=== PATIENT | male | born 1955 | race Caucasian/White ===

== ENCOUNTER 2017-04-24 06:48 | Inpatient (IN) | payer OTHER ==
[~2017-04-24 06:48] MED LIST: MORPHINE SULFATE 15 MG TABLET.SA PO PRN; RINGER'S SOLUTION,LACTATED 1,000 ML IV PRN; ROPIVACAINE HCL/PF 100 MG, EPINEPHrine 0.2 MG, KETOROLAC TROMETHAMINE 30 MG in NORMAL S... IJ PRN; TRANEXAMIC ACID 1,000 MG in NORMAL SALINE 100 ML IV PRN; ceFAZolin SODIUM 1 GM VIAL IV PRN
[2017-04-24] MEDS ORDERED: RINGER'S SOLUTION,LACTATED 1,000 ML IV ONE ×2 (07:45→08:46)
[2017-04-24] MEDS ORDERED: NALOXONE HCL 1 MG/1 ML SYRG IV PRN ×2 (08:33)
--- NOTE | 2017-04-24 09:39 | POSTOP NO ---
Date of Surgery: 04/24/17 Patient Tolerated the Procedure: Well Post Operative Diagnosis/Procedures: Enterprise Account Executive: Dylon White PA-C Post-operative Diagnosis: Left hip degenerative joint disease Finding: Above Procedure: Left total hip arthroplasty Estimated Blood Loss: 200 mL Specimens: Bone for disposal
[2017-04-24] MEDS ORDERED: MAGNESIUM HYDROXIDE 30 ML UDC PO PRN (09:41)
[2017-04-24] MEDS ORDERED: DEXTROSE 5%-LACTATED RINGERS 1,000 ML IV PRN (09:41)
[2017-04-24] MEDS ORDERED: PROMETHAZINE HCL 5 MG in DEXTROSE 5 % IN WATER 50 ML IV PRN ×2 (09:41)
[2017-04-24] MEDS ORDERED: ZOLPIDEM TARTRATE 5 MG TABLET PO PRN (09:41)
[2017-04-24] MEDS ORDERED: MAG HYDROX/ALUMINUM HYD/SIMETH 30 ML UDC PO PRN (09:41)
[2017-04-24] MEDS ORDERED: diphenhydrAMINE HCL 50 MG/ML VIAL IV PRN (09:41)
[2017-04-24] MEDS ORDERED: ACETAMINOPHEN 500 MG TABLET PO PRN (09:41)
[2017-04-24] MEDS ORDERED: ONDANSETRON HCL/PF 2 MG/ML VIAL IV PRN (09:41)
--- NOTE | 2017-04-24 09:41 | OR ---
Operative Report - Dictated Report Narrative: Date: 04/24/2017 Preoperative diagnosis: Left hip degenerative joint disease. Postoperative diagnosis: Left hip degenerative joint disease. Procedure: Left Total hip arthroplasty. Surgeon: Zain Navarrete M.D. Manager Garage: Dylon White PA-C Anesthesia: Spinal and local periarticular joint injection. Complications: None Specimens: Bone for disposal. Estimated blood loss: 200 milliliters. Retained implants: Depuy Belcher size 5 femoral stem standard offset. Size 56 millimeter outside diameter 3-hole [place] Gription acetabular cup. 56 millimeter outside by 36 millimeter inside diameter highly cross-linked acetabular liner. 36 millimeter diameter +8.5 millimeter cobalt chromium femoral head. Cancellous 6.5mm screw 35 millimeter length Indications: Mr. Curry is a 61-year-old gentleman who has had long-standing left hip pain and arthrosis. This patient was followed in my clinic for period of time with significant complaints of left hip pain consistent with arthritic changes. He failed conservative measures including but not limited to activity modification, passage of time, medications, and other conservative measures. Patient wished to proceed with surgical treatment. The risks, benefits, and alternatives were discussed in clinic. The risks of , blood clots, bleeding, infection, nerve/tendon blood vessel/ injury, malposition of components, dislocation and/or instability of joint, intraoperative fracture, postoperative limited range of motion, persistent pain, failure of components, and need for additional procedures. Patient wished to proceed. Consent was obtained after answering all questions. Procedure: After marking the correct extremity on the floor, the patient was taken to the operating room. A timeout was performed. IV antibiotics consisting of Ancef were administered prior to the procedure. A spinal anesthetic was induced by anesthesia. A Taylor catheter was inserted. The patient was then transitioned to a lateral position on a well-padded pegboard. An axillary roll was placed. The head was in neutral position. The non- operative down leg was well-padded with SCD and SUDHAKAR hose in place. The arms were supported and padded to protect from any undue pressure on the bony prominences and nerves. A well-padded anterior and posterior pelvic and chest posts were secured in order to maintain a stable position of the pelvis. This was placed so that the pelvis was perpendicular to the floor. The body was in line with the pelvis. Once it was felt that we had protected all the bony prominences and the patient was well secured with a safety belt as well, the leg was pre-scrubbed with alcohol, prepped and draped in a standard sterile fashion. A standard anterior lateral hip incision was marked out over the greater trochanter. Ioban drapes were then placed. The skin incision was then made. Sharp dissection with a scalpel utilizing cautery for hemostasis was carried out down to the gluteus and iliotibial band fascia. This was split in line with the skin incision. The greater trochanter bursa was excised. The anterior and posterior margins of the abductor tendon were identified. The anterior 1/2-1/3 of the tendon was tagged and reflected off the greater trochanter leaving a sleeve of tendon for repair at the completion of the case. This exposed the underlying hip joint capsule. A limb length stitch was placed in the skin and referencedd off a [place] on the greater trochanter for evaluation of intraoperative limb lengths. An inverted T-type capsulotomy was made extending this up to the brim of the acetabulum. Using Homans to assist with elevation of the soft tissues off the anterior, superior, and inferior aspects of the femoral neck, the hip was then placed in a figure 4 position and the femoral head was dislocated. With the leg in an externally rotated and adducted position, the cutting flag was utilized in order to [place] for a standard femoral neck cut approximately a fingerbreadth above the level of the lesser trochanter. This was done with reference to pre-operative films and overall alignment. This was done while protecting the surrounding soft tissues with Homans. The femoral head was then removed and sized for guidance on preparation of the acetabulum. It was noted that there was loss of articular cartilage on both the femoral head and weightbearing portions of the acetabulum. We then returned the leg to the table and turned our attention to the acetabulum. While protecting the surrounding soft tissues, the labrum and remaining tissue in the fovea were excised using a scalpel and cautery. A series of reamers up to size 56 millimeter were utilized to prepare the acetabulum. The final reamer had good purchase and exposed the bleeding subchondral bone. The acetabulum was then thoroughly irrigated ensuring that all bony and cartilaginous materials were removed, and the final acetabular shell was impacted into place. This was placed in approximately 45 degrees of abduction and 20 degrees of anteversion utilizing the outrigger and body axis for alignment. This had a good press fit. 1 6.5mm cancellous screw was placed in the superior posterior quadrant of the acetabulum. The shell was then thoroughly irrigated and the final polyethylene was impacted into place ensuring that it seated completely. This was then protected with a sponge while we returned our attention to the femur. With the leg in a figure 4 position, utilizing Homans for soft tissue protection , a box cutting osteotome, followed by Charnley awl, followed by serial reamers and broaches were utilized in order to prepare the femur. It was found that a size 5 broach gave good axial and rotational stability. The calcar reamer was utilized in order to clean up the cut edges. The proximal femur was visualized to ensure that there were no signs of fracture. A series of heads and necks were trialed. It was found that a standard neck and a + 8.5 femoral head gave good overall stability. There was minimal longitudinal instability. With the leg in the position of sleep, the femoral head was well covered. Hip range of motion was able to reach full extension and external rotation to greater than 75 degrees prior to impingement along the posterior acetabulum. The hip was able to be flexed to greater than 90 degrees with internal rotation greater than 60 degrees prior to anterior impingement. The limb lengths were near equal based on comparison to the contralateral side and the prior placed limb length stitch. At this point it was felt these were the appropriately sized femoral components as well as neck and femoral head. The trial implants were removed. The femur was thoroughly irrigated. The final implants were impacted into place, and the hip was reduced. After ensuring that there was no damage to the proximal femur , the standard periarticular joint injection of ropivacaine, Toradol, and epinephrine were injected into the joint capsule and surrounding soft tissues. Anesthesia then administered intravenous tranexamic acid. The capsule was repaired with a single interrupted #1 Vicryl. The abductor tendon was repaired to the greater trochanter utilizing #5 Ethibond through drill holes. This was oversewn with #1 Vicryl. The fascia was closed with interrupted #1 Vicryl. The wounds were thoroughly irrigated as we closed in layers. The deep and subcutaneous fat layers were closed with 0 and 3-0 Vicryl respectively. The subcutaneous tissue was closed with a running 3-0 Vicryl and the skin with running 3-0 Monocryl subcutaneous and Prineo Dermabond dressing. All sponge, needle, blade, and instrument counts were correct prior to closing the wounds. Sterile dressings consisting of 4 x 4's, and tape were applied. The patient was awoken and transferred to her hospital bed and then to the postanesthesia care unit in stable condition. Postoperative condition: The plan is to admit to the medical/surgical inpatient floor postoperatively. There will be a projected 1 to 3 day hospital stay. Postoperatively 24 hours of IV antibiotics, pain control, physical therapy, occupational therapy, and medical comanagement will be utilized. Patient will be weightbearing as tolerated with anterior hip precautions. Postoperative films will be obtained in the recovery room.
[2017-04-24] MEDS ORDERED: HYDROmorphone HCL 2 MG/ML VIAL IV PRN (09:59)
[2017-04-24] MEDS: KETOROLAC TROMETHAMINE 15 MG/ML VIAL IV SCH ×3 (10:47→21:18)
[2017-04-24] MEDS: ceFAZolin SODIUM 1 GM in DEXTROSE 5 % IN WATER 50 ML IV SCH ×6 (10:48→22:59)
[2017-04-24] MEDS: oxyCODONE HCL/ACETAMINOPHEN 1 TAB TABLET PO PRN ×2 (16:30→21:17)
[2017-04-24] MEDS: SENNOSIDES/DOCUSATE SODIUM 1 TAB TABLET PO SCH (21:17)
[2017-04-24] MEDS: MORPHINE SULFATE 15 MG TABLET.SA PO SCH (21:17)
[2017-04-24] MEDS: SIMVASTATIN 20 MG TABLET PO SCH (21:18)
[2017-04-25] MEDS: oxyCODONE HCL/ACETAMINOPHEN 1 TAB TABLET PO PRN ×4 (03:47→18:19)
[2017-04-25] MEDS: KETOROLAC TROMETHAMINE 15 MG/ML VIAL IV SCH ×3 (03:47→15:43)
[2017-04-25 06:04] LABS: Hematocrit 38.4 % (42.0-52.0); Mean Cell Volume 89.9 fl (78-100); Mean Corpuscular Hemoglobin 30.4 pg (27-31); Mean Corpuscular Hgb Conc 33.9 g/dl (32-36); Mean Platelet Volume 10.6 fl (6.0-9.5); Platelet Count 176 K/mm3 (150-450); Red Blood Count 4.27 M/mm3 (4.7-6.0); Red Cell Distribution Width 13.1 % (11.5-14.0); White Blood Count 9.5 K/mm3 (4.0-10.5)
[2017-04-25 06:12] LABS: Anion Gap 11.5 mmol/L (6.8-13.8); BUN/Creatinine Ratio 14.6 (9.0-21.6); Calcium * 8.5 mg/dL (7.9-10.9); Carbon Dioxide 26.6 mmol/L (24-32.6); Estimated Creat Clear 101.6; Potassium 4.1 mmol/L (3.4-4.6)
[2017-04-25] MEDS: PANTOPRAZOLE SODIUM 40 MG TABLET.EC PO SCH (07:01)
--- NOTE | 2017-04-25 08:08 | PN ---
Subjective - Date and Time Seen Date: 04/25/17 Subjective Narrative: Subjective: Reports moderate pain. Was able to well, was with therapy. Pain is tolerable pain meds. Voiding without any complications. Tolerating by mouth intake. Denies any nausea or vomiting. Denies calf pain. Slept well. Physical exam: Alert and oriented to person, place and time Left lower Extremity: Palpable dorsalis pedis pulse. Sensation grossly intact to light touch. Dressings clean and dry. Able to flex and extend ankle and toes. No excessive drainage. Calf and thigh are soft and nontender. Assessment: Postop day 1 status post left total hip arthroplasty. Plan: Due to the need for pain control, post-operative limited mobility, protection of the surgical site and joint, monitoring of the wound, and the management of chronic medical conditions, he requires continued inpatient care. Continue with physical and occupational therapy weightbearing as tolerated. Continue with anticoagulation. 24 hours postoperative prophylactic antibiotics. Pain control with goal to rely on oral medications. Continue bowel regimen. Will need 6 weeks with walker or assitive device to protect joint while ambulating during the recovery process. Discharge planning. Discontinue Taylor catheter. Objective - Vitals Vitals: Last Vital Signs Temp 36.2 C L 04/25/17 04:00 Pulse 77 04/25/17 04:00 Resp 18 04/25/17 04:00 BP 99/65 04/25/17 04:00 Pulse Ox 93 04/25/17 04:00 - Abnormal Lab Findings Abnormal Lab Findings: Abnormal Lab Results 04/25/17 04/25/17 Range/Units 05:55 05:55 RBC 4.27 L (4.7-6.0) M/mm3 Hgb 13.0 L (13.5-18.0) gm/dL Hct 38.4 L (42.0-52.0) % MPV 10.6 H (6.0-9.5) fl Random Glucose 143 H (70-110) mg/dL Cauti Physician Documentation - Urinary Catheter Management Urethral (Taylor) Date of Insertion: 04/24/17 Time of Insertion: 08:05 Date of Removal: 04/25/17 Time of Removal: 07:04 Assessment/Plan - Problems/Diagnosis (1) Status post left hip replacement Problem: Acute (2) GERD (gastroesophageal reflux disease) Problem: Chronic (3) Hyperlipidemia Problem: Chronic (4) Acute blood loss anemia Problem: Acute
[2017-04-25] MEDS: OMEGA-3 FATTY ACIDS 1 CAP CAPSULE PO SCH (08:19)
[2017-04-25] MEDS: MULTIVITAMINS 1 CAP CAPSULE PO SCH (08:19)
[2017-04-25] MEDS: MORPHINE SULFATE 15 MG TABLET.SA PO SCH ×2 (08:19→21:16)
[2017-04-25] MEDS: ENOXAPARIN SODIUM 40 MG/0.4 ML SYRG SC SCH (08:20)
[2017-04-25] MEDS: SENNOSIDES/DOCUSATE SODIUM 1 TAB TABLET PO SCH (21:16)
[2017-04-25] MEDS: SIMVASTATIN 20 MG TABLET PO SCH (21:16)
--- NOTE | 2017-04-25 23:50 | PN ---
Subjective - Date and Time Seen Date: 04/25/17 Time: 16:45 Subjective Narrative: Pain controlled. No fever, chills, n/v. Objective - Vitals Vitals: Last Vital Signs Temp 37.0 C 04/25/17 19:04 Pulse 72 04/25/17 19:04 Resp 16 04/25/17 19:04 BP 114/65 04/25/17 19:04 Pulse Ox 94 04/25/17 19:04 - Abnormal Lab Findings Abnormal Lab Findings: Abnormal Lab Results 04/25/17 04/25/17 Range/Units 05:55 05:55 RBC 4.27 L (4.7-6.0) M/mm3 Hgb 13.0 L (13.5-18.0) gm/dL Hct 38.4 L (42.0-52.0) % MPV 10.6 H (6.0-9.5) fl Random Glucose 143 H (70-110) mg/dL - Exam Constitutional: Present: Alert, Oriented x3, Cooperative ENT Exam: Present: hearing grossly normal Respiratory: Present: lungs clear, normal breath sounds Cardiovascular/Chest: Present: regular rate, rhythm, no murmur Abdomen: Present: Normal bowel sounds, soft, nontender, nondistended Cauti Physician Documentation - Urinary Catheter Management Urethral (Taylor) Date of Insertion: 04/24/17 Time of Insertion: 08:05 Date of Removal: 04/25/17 Time of Removal: 07:04 Assessment/Plan Plan Narrative: Doing well. No medical concerns. Ok with discharge when ok with Ortho and PT. - Problems/Diagnosis (1) Acute blood loss anemia Problem: Acute (2) Status post left hip replacement Problem: Acute
[2017-04-26] MEDS: oxyCODONE HCL/ACETAMINOPHEN 1 TAB TABLET PO PRN ×3 (00:14→12:00)
[2017-04-26] MEDS: KETOROLAC TROMETHAMINE 15 MG/ML VIAL IV SCH ×2 (00:15→03:58)
--- NOTE | 2017-04-26 05:33 | PN ---
Subjective - Date and Time Seen Date: 04/26/17 Time: 05:30 Subjective Narrative: Pt seen this am. Has no complaints. Pain is well controlled. Has been tolerating activity well. No BM. No other acute events overnight. Objective - Vitals Vitals: Last Vital Signs Temp 36.6 C 04/26/17 04:16 Pulse 70 04/26/17 04:16 Resp 18 04/26/17 04:16 BP 110/70 04/26/17 04:16 Pulse Ox 98 04/26/17 04:16 - Abnormal Lab Findings Abnormal Lab Findings: Abnormal Lab Results 04/25/17 04/25/17 Range/Units 05:55 05:55 RBC 4.27 L (4.7-6.0) M/mm3 Hgb 13.0 L (13.5-18.0) gm/dL Hct 38.4 L (42.0-52.0) % MPV 10.6 H (6.0-9.5) fl Random Glucose 143 H (70-110) mg/dL - Exam Constitutional: Present: Alert, Oriented x3, Cooperative, No distress ENT Exam: Present: normal ENT inspection Neck: Present: non-tender, full range of motion, supple Breasts: Present: Exam deferred Respiratory: Present: chest non-tender, lungs clear, normal breath sounds Cardiovascular/Chest: Present: normal peripheral pulses, regular rate, rhythm, no chest tenderness Abdomen: Present: Normal bowel sounds, soft, nontender /Rectal: Present: Exam deferred Extremity: Present: normal range of motion, other - LT hip surgical site intact Skin Exam: Present: warm/dry, no cyanosis Lymphatic: Present: no adenopathy Neurologic: Present: alert Appearance: Present: appropriate appearance, appropriate insight Eye contact: Present: cooperative, good eye contact, normal speech Thoughts: Present: normal thought pattern, no apparent hallucination Cauti Physician Documentation - Urinary Catheter Management Urethral (Taylor) Date of Insertion: 04/24/17 Time of Insertion: 08:05 Date of Removal: 04/25/17 Time of Removal: 07:04 Assessment/Plan - Problems/Diagnosis (1) Status post left hip replacement Problem: Acute Narrative: On POD # 2- Continue with Ortho recommendations; Pain control, PT/OT, bowel regimen, anticoagulants. (2) GERD (gastroesophageal reflux disease) Problem: Chronic (3) Hyperlipidemia Problem: Chronic (4) Acute blood loss anemia Problem: Chronic
[2017-04-26] MEDS: PANTOPRAZOLE SODIUM 40 MG TABLET.EC PO SCH (06:57)
[2017-04-26] MEDS: OMEGA-3 FATTY ACIDS 1 CAP CAPSULE PO SCH (08:10)
[2017-04-26] MEDS: MORPHINE SULFATE 15 MG TABLET.SA PO SCH (08:10)
[2017-04-26] MEDS: MULTIVITAMINS 1 CAP CAPSULE PO SCH (08:10)
[2017-04-26] MEDS: ENOXAPARIN SODIUM 40 MG/0.4 ML SYRG SC SCH (08:11)
--- NOTE | 2017-04-26 10:31 | DS ---
(1) Status post left hip replacement Problem: Acute (2) GERD (gastroesophageal reflux disease) Problem: Chronic (3) Hyperlipidemia Problem: Chronic (4) Acute blood loss anemia Problem: Acute Description of Stay: Mr. Curry was admitted to the floor after undergoing left total hip arthroplasty. Tolerated this well. Was admitted to the floor postoperatively for 24 hours of IV antibiotics, pain control, medical comanagement, and occupational and physical therapy. OT and PT were consulted to assist with activities of daily living and ambulation. Was made weightbearing as tolerated with anterior hip precautions. Pain was initially controlled with IV regimen. This was transitioned to oral once tolerating a by mouth intake. Was resumed on home diet and medications. Had a Taylor catheter inserted and the operating room which was discontinued on postoperative day 1. Lovenox SCD and SUDHAKAR hose were utilized for DVT prophylaxis. Vital signs remained stable to the hospital course. Serial labs were obtained which showed a final hemoglobin of 13.0 grams. BMP was reviewed and was stable. Physical examination throughout the hospital course showed an extremity that had sensation that was intact to light touch, palpable pulses, a benign wound, motor intact to the toes, ankle, and knee. Once an oral pain regimen was tolerated and physical therapy goals were met, it was felt that they were stable for discharge to home. Instructions: Continue with weightbearing as tolerated and anterior hip precautions with no active abduction. It is okay to shower and get the wound wet as long as there is no drainage from the wound. Do not bathe or soak the wound. If there is any drainage from the wound keep the wound clean and dry and cover with dry gauze and tape. Change every 2-3 days as needed if there is any drainage. Cover wound while showering if there is any drainage. Continue with physical therapy. Resume home diet. Report any fever over 101.5 Fahrenheit, uncontrolled pain, increased drainage, foul odor of drainage, new or increased calf pain or shortness of breath, or any other significant complaints. A 325mg dialy aspirin will be started after finishing anticoagulation if not allergic. Continue with SUDHAKAR hose on the operative extremity until instructed otherwise. No driving until instructed otherwise. Follow up in approximately 10-14 days. Procedures Performed: see notes below List Procedures: Left total hip arthroplasty Discharge Disposition: Home self care Disposition: Home self-care Condition: Good Discharge Activity: Weight bearing, Other - no active abduction, anterior hip precautions Discharge Diet: General/regular food Referrals: Kamron Mccauley DO [Primary Care Provider] - Additional Patient Instructions (free text): Out patient Physical Therapy at [facility] rehab on Apr.29 at 9:45am. Orthopedic follow up with Dr. Naavrrete May 09 at 9:45am. Prescriptions (Any new or edited meds): Enoxaparin Sodium [Lovenox] 40 mg SC Q24H #7 disp.syrin Morphine Sulfate [Ms Contin] 15 mg PO Q12H #20 tablet.sa oxyCODONE HCL/ACETAMINOPHEN [Percocet 5 MG/325 MG] 2 tab PO Q4H PRN #60 tablet PRN Reason: Moderate Pain (Pain Scale 4-6) Complete Home Medications List: Complete Home Medication List: Esomeprazole Magnesium [Nexium] 40 mg PO DAILY 09/01/13 Meloxicam [Mobic] 7.5 mg PO DAILY 09/01/13 Multivitamins [Multivitamin Laura] 1 cap PO DAILY 09/01/13 [place]-3 Fatty Acids/Fish Oil [Fish Oil 1,000 mg Capsule] 1 each PO DAILY Simvastatin [Zocor] 20 mg PO QAM 09/01/13 Enoxaparin Sodium [Lovenox] 40 mg SC Q24H #7 disp.syrin 04/26/17 Morphine Sulfate [Ms Contin] 15 mg PO Q12H #20 tablet.sa 04/26/17 Sennosides/Docusate Sodium [Senokot-S] 2 tab PO HS tablet 04/26/17 oxyCODONE HCL/ACETAMINOPHEN [Percocet 5 MG/325 MG] 2 tab PO Q4H PRN #60 tablet 04/26/17 Amb Orders for Discharge: PT Evaluation and Treatment Facility: [facility], Location: Rehabilitation Services
[2017-04-26 10:58] VITALS: BP 114/71
== END 2017-04-26 13:00 | disposition home or self-care (01) | DRG 470 ==
LOC: MS 06:48
PROVIDERS: ADMIT Orthopaedic Surgery; ATTEND Orthopaedic Surgery
PROC: 0SRB0JZ Replacement of Left Hip Joint with Synthetic Substitute, Open Approach (ICD-10-PCS; principal; 2017-04-24)
DX: M16.0 Bilateral primary osteoarthritis of hip (principal); D62 Acute posthemorrhagic anemia; F17.210 Nicotine dependence, cigarettes, uncomplicated; K21.9 Gastro-esophageal reflux disease without esophagitis; E78.5 Hyperlipidemia, unspecified; Z79.82 Long term (current) use of aspirin